=== PATIENT | female | born 1965 | race Hispanic/Latino ===

== ENCOUNTER 2017-01-25 12:05 | Emergency (ER) | payer BC ==
[~2017-01-25] VITALS: Ht 175.3 cm; Wt 105.1 kg
[~2017-01-25 12:05] MED LIST: ATORVASTATIN CA40 MG PO; CYMBALTA60 MG PO; EVOXAC30 MG PO; FARXIGA10 MG PO; FIORICET 50-301 EACH PO; GABAPENTIN300 MG PO; HYDROCODON-ACE1 EAC7 PO; INDOCIN SR75 MG PO; LANTUS 3 M100 UNITS1 SC; LITE COAT ASPI325 M1 PO; NORTRIPTYLINE H10 MG PO; NOVOLOG PE100 UNITS/ SC; OMEPRAZOLE20 MG PO; PERCOCET 5/31 TABLET PO; PROAIR HFA8.5 GM IH; SKELAXIN800 MG PO; ZYRTEC10 M2 PO
[2017-01-25 13:14] LABS: ADD MIUA? NO; BILIRUBIN NEGATIVE; BLOOD NEGATIVE; COLOR YELLOW ((YELLOW)); GLUCOSE (STRIP) >=500; KETONES 20; LEUKOCYTES NEGATIVE; NITRITE NEGATIVE; PROTEIN (STRIP) NEGATIVE; SPECIFIC GRAVITY 1.036 (1.000-1.030); UCUL ADDED? NO; UROBILINOGEN 0.2 MG/DL (0.2-1.0)
[2017-01-25 13:18] LABS: HEMATOCRIT 45.7 % (36.0-46.0); MCH 28.8 PG (29.0-34.0); MCHC 35.4 G/DL (30.0-36.0); MCV 81.2 FL (83-99); MEAN PLAT.VOLUME 11.1 uM^3 (9.5-12.4); PLATELET COUNT 257 K/uL (156-360); RBC DIS.WIDTH-CV 12.1 % (11.8-14.6); RBC DIS.WIDTH-SD 35.7 % (39-53); RED BLOOD COUNT 5.63 M/uL (3.80-5.20)
[2017-01-25 13:30] LABS: CHLORIDE 96 mEq/L (99-109); POTASSIUM 4.1 mEq/L (3.7-5.4); SODIUM 132 mEq/L (136-147)
[2017-01-25 13:33] LABS: ANION GAP 17 MEQ/L (2-14)
[2017-01-25 13:34] LABS: TOTAL BILIRUBIN 0.9 mg/dL (0.0-1.0)
[2017-01-25 13:36] LABS: ALKALINE PHOSPHATASE 108 IU/L (3-129); GFR ESTIMATE (CALCULATED) 46 mL/min/
[2017-01-25 13:37] LABS: UREA NITROGEN (BUN) 24 mg/dL (9-23)
[2017-01-25 13:38] LABS: GLUCOSE 589 mg/dL (70-99)
[2017-01-25 13:39] LABS: LIPASE 10 U/L (1.0-51.0)
[2017-01-25 13:46] LABS: QUANTITATIVE HCG < 4.0 MIU/ML
[2017-01-25 14:02] LABS: CARBON DIOXIDE (BICARBONATE) 25.4 MEQ/L (20-31)
[2017-01-25] MEDS ORDERED: ZOFRAN ODT4 MG PO (17:19)
[2017-01-25] MEDS ORDERED: REGLAN10 MG PO (17:19)
[2017-01-25] MEDS ORDERED: COMPAZINE25 M1 PR (17:19)
[2017-01-25 17:25] LABS: POINT-OF-CARE METER ID UU14100415
[2017-01-25 17:42] VITALS: BP 122/80
[2017-01-26 10:19] LABS: POINT-OF-CARE METER ID UU14100415
== END 2017-01-25 17:45 | disposition home or self-care (01) ==
LOC: EME 12:05
PROVIDERS: Nurse Practitioner Family
DX: R10.11 Right upper quadrant pain (principal); R11.2 Nausea with vomiting, unspecified; R19.7 Diarrhea, unspecified; E11.10 Type 2 diabetes mellitus with ketoacidosis without coma; M79.7 Fibromyalgia; Z90.49 Acquired absence of other specified parts of digestive tract; Z79.4 Long term (current) use of insulin; Z88.0 Allergy status to penicillin; Z88.2 Allergy status to sulfonamides; Z88.1 Allergy status to other antibiotic agents
CPT/HCPCS: 74176; 80053; 81003; 82010; 82803; 82948; 83690; 84702; 85027; 99281; 99285; J2405; J2765; J7030

== ENCOUNTER 2017-06-26 11:19 | Observation (INO) | payer BC ==
[~2017-06-26] VITALS: Ht 175.3 cm; Wt 116.5 kg
[~2017-06-26 11:19] MED LIST changes: +COMPAZINE25 M1 PR; -FIORICET 50-301 EACH PO; -GABAPENTIN300 MG PO; +NEURONTIN800 MG PO; +REGLAN10 MG PO; +ZEBUTAL 50-3251 EACH PO; +ZOFRAN ODT4 MG PO
[2017-06-26 11:45] LABS: HEMOGLOBIN 14.1 G/DL (11.9-15.5); MCHC 34.4 G/DL (30.0-36.0); MCV 84.4 FL (83-99); PLATELET COUNT 287 K/uL (156-360); RBC DIS.WIDTH-CV 12.3 % (11.8-14.6); RBC DIS.WIDTH-SD 37.4 % (39-53); RED BLOOD COUNT 4.86 M/uL (3.80-5.20); WHITE BLOOD COUNT 8.4 K/uL (4.1-10.2)
[2017-06-26 11:53] LABS: CHLORIDE 103 mEq/L (99-109); POTASSIUM 3.7 mEq/L (3.7-5.4); SODIUM 135 mEq/L (136-147)
[2017-06-26 11:58] LABS: CREATININE 1.1 mg/dL (0.6-1.3); GFR ESTIMATE (CALCULATED) 56 mL/min/
[2017-06-26 11:59] LABS: UREA NITROGEN (BUN) 12 mg/dL (9-23)
[2017-06-26 12:03] LABS: GLUCOSE 516 mg/dL (70-99)
[2017-06-26 13:13] LABS: TROP-I INTERPRETATION NEGATIVE; TROPONIN-I < 0.01 ng/mL (0.0-0.30)
[2017-06-26 14:10] LABS: CARBON DIOXIDE (BICARBONATE) 28.4 MEQ/L (20-31)
[2017-06-26] MEDS ORDERED: NOVOLOG PE100 UNITS/ SC (15:32)
[2017-06-26] MEDS ORDERED: ADVAIR 250/501 DISK IH (15:35)
[2017-06-26] MEDS ORDERED: BENADRYL25 MG PO (15:35)
[2017-06-26] MEDS ORDERED: ZANTAC150 MG PO (15:37)
[2017-06-26] MEDS ORDERED: ZANAFLEX4 M1 PO (15:38)
[2017-06-26] MEDS ORDERED: KLONOPIN1 MG PO (15:38)
[2017-06-26] MEDS ORDERED: FLONASE16 G1 BOTH NARES (15:39)
[2017-06-26] MEDS ORDERED: TRESIBA FL100 UNIT/1 SC (15:43)
[2017-06-26 15:56] LABS: TOTAL PROTEIN 6.7 g/dL (6.4-8.3)
[2017-06-26 15:58] LABS: TOTAL BILIRUBIN 0.2 mg/dL (0.0-1.0)
[2017-06-26 15:59] LABS: ALKALINE PHOSPHATASE 119 IU/L (3-129)
[2017-06-26 16:01] LABS: AST (GOT) 13 IU/L (2-34)
[2017-06-26 16:02] LABS: ALT (GPT) 22 IU/L (3-49); DIRECT BILIRUBIN 0.1 mg/dL (0.0-0.3)
[2017-06-26 16:03] LABS: LIPASE 17 U/L (1.0-51.0)
[2017-06-26 17:47] LABS: CHLORIDE 106 mEq/L (99-109); POTASSIUM 3.6 mEq/L (3.7-5.4); SODIUM 139 mEq/L (136-147)
[2017-06-26 17:53] LABS: CREATININE 0.8 mg/dL (0.6-1.3); GFR ESTIMATE (CALCULATED) > 59 mL/min/
[2017-06-26 17:54] LABS: UREA NITROGEN (BUN) 10 mg/dL (9-23)
[2017-06-26 17:54] LABS: QUANTITATIVE HCG < 4.0 MIU/ML
[2017-06-26 17:56] LABS: GLUCOSE 128 mg/dL (70-99)
[2017-06-26 18:02] LABS: QUANTITATIVE HCG < 4.0 MIU/ML
[2017-06-26 18:32] VITALS: BP 122/65
[2017-06-26 18:36] LABS: HDL CHOLESTEROL 50 MG/DL (Desirable>=50); LDL CHOLESTEROL 37 mg/dL (Desirable<100); NON-HDL CHOLESTEROL 97 mg/dL (Desirable<160); TOTAL CHOLESTEROL 147 mg/dL (Desirable<200); TRIGLYCERIDES 301 MG/DL (Normal: <150)
[2017-06-26 19:15] VITALS: BP 133/78
[2017-06-26 21:03] LABS: TROP-I INTERPRETATION NEGATIVE; TROPONIN-I < 0.01 ng/mL (0.0-0.30)
[2017-06-27 04:23] VITALS: BP 123/62
[2017-06-27 05:29] LABS: HEMATOCRIT 40.1 % (36.0-46.0); HEMOGLOBIN 13.4 G/DL (11.9-15.5); MCH 28.2 PG (29.0-34.0); MCHC 33.4 G/DL (30.0-36.0); MCV 84.4 FL (83-99); PLATELET COUNT 273 K/uL (156-360); RBC DIS.WIDTH-CV 12.4 % (11.8-14.6); RBC DIS.WIDTH-SD 37.6 % (39-53); RED BLOOD COUNT 4.75 M/uL (3.80-5.20); WHITE BLOOD COUNT 9.7 K/uL (4.1-10.2)
[2017-06-27 05:43] LABS: PTT 26.8 SEC (25-37); TROP-I INTERPRETATION NEGATIVE; TROPONIN-I < 0.01 ng/mL (0.0-0.30)
[2017-06-27 05:53] LABS: ALBUMIN 3.8 G/DL (3.2-4.8); ALKALINE PHOSPHATASE 93 IU/L (3-129); ALT (GPT) 17 IU/L (3-49); AST (GOT) 15 IU/L (2-34); CHLORIDE 103 MEQ/L (99-109); CREATININE 0.9 MG/DL (0.6-1.3); GFR ESTIMATE (CALCULATED) > 59 mL/min/; SODIUM 134 MEQ/L (136-147); TOTAL BILIRUBIN 0.3 MG/DL (0.0-1.0); TOTAL PROTEIN 5.9 G/DL (6.4-8.3); UREA NITROGEN (BUN) 15 mg/dL (9-23)
[2017-06-27 06:22] LABS: GLUCOSE 368 mg/dL (70-99); POTASSIUM 4.6 MEQ/L (3.7-5.4)
[2017-06-27 07:10] VITALS: BP 137/74
[2017-06-27 09:36] LABS: HEMOGLOBIN A1c (GLYCOHEMOGLOB) 11.4 % (Below 5.7)
[2017-06-27 11:40] VITALS: BP 133/68
[2017-06-27] MEDS ORDERED: PREDNISONE20 MG PO (15:06)
[2017-06-27] MEDS ORDERED: PANTOPRAZOLE SO40 MG PO (15:06)
[2017-06-27] MEDS ORDERED: LEVOFLOXACIN500 MG PO (15:10)
[2017-06-27 15:35] VITALS: BP 127/70
== END 2017-06-27 17:12 | disposition home or self-care (01) ==
LOC: EME 11:19 → EDOF 16:33 → ENRESERV 17:12 → 4SOUTH 18:04
PROVIDERS: Internal Medicine; Nurse Practitioner Acute Care; Physician Assistant
DX: R07.89 Other chest pain (principal); J45.901 Unspecified asthma with (acute) exacerbation; E66.01 Morbid (severe) obesity due to excess calories; E11.65 Type 2 diabetes mellitus with hyperglycemia; Z79.4 Long term (current) use of insulin; J02.9 Acute pharyngitis, unspecified; H92.01 Otalgia, right ear; M79.7 Fibromyalgia; F41.9 Anxiety disorder, unspecified; F32.9 Major depressive disorder, single episode, unspecified; G47.33 Obstructive sleep apnea (adult) (pediatric); R00.2 Palpitations; E78.5 Hyperlipidemia, unspecified; D89.89 Other specified disorders involving the immune mechanism, not elsewhere classified; G89.29 Other chronic pain; K21.9 Gastro-esophageal reflux disease without esophagitis; Z90.49 Acquired absence of other specified parts of digestive tract; Z80.0 Family history of malignant neoplasm of digestive organs; Z80.52 Family history of malignant neoplasm of bladder; Z82.49 Family history of ischemic heart disease and other diseases of the circulatory system; Z88.0 Allergy status to penicillin; Z88.2 Allergy status to sulfonamides; Z88.8 Allergy status to other drugs, medicaments and biological substances; Z91.018 Allergy to other foods
CPT/HCPCS: 71046; 71275; 80048; 80048 91; 80053; 80061; 80076; 82010; 82803; 82948; 83036; 83690; 83880; 84484; 84702; 85027; 85610; 85730; 87651 90; 93005; 94640; 94640 76; 99202; 99281; 99285; C9113; G0378; J1650; J1815; J7030; J7512